=== PATIENT | female | born 1945 | race Caucasian/White ===

== ENCOUNTER 2017-12-31 15:05 | Emergency (ER) | payer OTHER ==
[~2017-12-31] VITALS: Ht 162.6 cm; Wt 74.8 kg
[2017-12-31] MEDS ORDERED: NEURONTIN600 MG (15:24)
[2017-12-31] MEDS ORDERED: TROMBONEX CAPS1 EACH (15:24)
[2017-12-31] MEDS ORDERED: VASOTEC5 MG (15:24)
[2017-12-31] MEDS ORDERED: ASA325 MG (15:25)
[2017-12-31] MEDS ORDERED: TOPROL XL50 M1 (15:25)
[2017-12-31] MEDS ORDERED: LEXAPRO5 MG (15:25)
[2017-12-31] MEDS ORDERED: RESTORIL7.5 MG (15:26)
[2018-01-01] MEDS ORDERED: IPRATROPIU0.2 MG/1 M IH (14:51)
[2018-01-01] MEDS ORDERED: XOPENEX0.63 MG/3 IH (14:51)
[2018-01-01] MEDS ORDERED: PULMICORT1 MG/2 ML IH (14:51)
[2018-01-01] MEDS ORDERED: ZYNCOF 20-400120 ML PO (14:54)
[2018-01-01] MEDS ORDERED: TESSALON PERLE100 M1 PO (14:54)
[2018-01-01] MEDS ORDERED: TUSSIONEX PENN115 ML PO (14:54)
== END 2018-01-02 10:24 | disposition home or self-care (01) ==
LOC: ER 15:05
DX: J44.1 Chronic obstructive pulmonary disease with (acute) exacerbation (principal); J45.998 Other asthma; R05 Cough; J11.1 Influenza due to unidentified influenza virus with other respiratory manifestations

== ENCOUNTER 2019-02-24 09:42 | Emergency (ER) | payer OTHER ==
[~2019-02-24] VITALS: Ht 162.6 cm; Wt 77.6 kg
[~2019-02-24 09:42] MED LIST: ASA325 MG; IPRATROPIU0.2 MG/1 M IH; LEXAPRO5 MG; NEURONTIN600 MG; PULMICORT1 MG/2 ML IH; RESTORIL7.5 MG; TESSALON PERLE100 M1 PO; TOPROL XL50 M1; TROMBONEX CAPS1 EACH; TUSSIONEX PENN115 ML PO; VASOTEC5 MG; XOPENEX0.63 MG/3 IH; ZYNCOF 20-400120 ML PO
[2019-02-24] MEDS ORDERED: TAMBOCOR150 MG (10:08)
[2019-02-24] MEDS ORDERED: ELIQUIS2.5 MG (10:08)
[2019-02-24] MEDS ORDERED: DELSYM30 MG/5 M1 PO (13:42)
== END 2019-02-24 13:46 | disposition home or self-care (01) ==
LOC: ER 09:42
DX: B34.9 Viral infection, unspecified (principal)

== ENCOUNTER 2021-08-29 20:42 | Emergency (ER) | payer OTHER ==
[~2021-08-29] VITALS: Ht 157.5 cm; Wt 76.2 kg
[~2021-08-29 20:42] MED LIST changes: +DELSYM30 MG/5 M1 PO; +ELIQUIS2.5 MG; +TAMBOCOR150 MG
[2021-08-29] MEDS ORDERED: SYNTHROID50 MCG PO (20:54)
[2021-08-29] MEDS ORDERED: AMLODIPINE-OLM1 EAC2 PO (20:56)
== END 2021-08-29 22:51 | disposition home or self-care (01) ==
LOC: ER 20:42
DX: R10.9 Unspecified abdominal pain (principal); Z88.1 Allergy status to other antibiotic agents

== ENCOUNTER 2021-09-17 06:00 | Inpatient (IN) | payer OTHER ==
[~2021-09-17] VITALS: Ht 157.5 cm; Wt 74.4 kg
[~2021-09-17 06:00] MED LIST changes: +AMLODIPINE-OLM1 EAC2 PO; +SYNTHROID50 MCG PO
[2021-09-18] MEDS ORDERED: ULTRAM50 MG PO (09:09)
== END 2021-09-18 11:04 | disposition home or self-care (01) | DRG 419 ==
LOC: CIR.AMB 06:00 → SURH 15:12 → CIR.AMB 15:30 → SURH 09-18 11:04
PROVIDERS: ADMIT Surgery; ATTEND Surgery
PROC: BF03YZZ Plain Radiography of Gallbladder and Bile Ducts using Other Contrast (ICD-10-PCS; 2021-09-17)
PROC: 0FT44ZZ Resection of Gallbladder, Percutaneous Endoscopic Approach (ICD-10-PCS; principal; 2021-09-17 15:30)
DX: K80.00 Calculus of gallbladder with acute cholecystitis without obstruction (principal); Z20.822 Contact with and (suspected) exposure to COVID-19

== ENCOUNTER 2024-04-02 06:00 | Day surgery (SDC) | payer OTHER ==
[2024-03-29 08:44] VITALS: BP 117/73
[2024-03-29 08:49] LABS: HEMATOCRIT 34.9 % (36.0-45.00); HEMOGLOBIN 11.7 g/dL (12.0-15.00); MEAN CELL VOLUME 94.7 fL (80.00-100.00); MEAN CORPUSCULAR HEMOGLOBIN 31.9 pg (27.00-32.0); MEAN CORPUSCULAR HGB CONC 33.6 g/dl (32.0-36.0); PLATELET COUNT 356 K/uL (150-450); RED BLOOD COUNT 3.68 M/uL (4.00-6.00); RED CELL DISTRIBUTION WIDTH 13.2 % (11.5-14.5)
[2024-03-29 09:03] LABS: PH,URINE 5.5 (5.0-8.0); URINE APPEARANCE Cloudy; URINE BILIRRUBIN Negative (NEGATIVE); URINE BLOOD Large; URINE COLOR Dark Yellow; URINE GLUCOSE Negative (NEGATIVE); URINE KETONE Trace (NEGATIVE); URINE LEUKOCYTE Moderate; URINE NITRATE Negative; URINE PROTEIN 30 (NEGATIVE)
[2024-03-29 09:07] LABS: URINE EPITHELIAL CELLS 31.8 uL (0.0-38.8); URINE RBC 206.2 uL (0.0-20.8); URINE WBC 32.5 uL (0.0-23.2)
[2024-03-29 09:19] LABS: URINE CRYSTALS FEW /HPF; URINE MUCUS MODERATE
[2024-03-29 09:56] LABS: INR 1.01; PARTIAL THROMBOPLASTIN TIME 26.3 SECONDS (22.0-34.0)
[2024-03-29 10:19] LABS: ALBUMIN 3.2 gm/dL (3.4-5.0); BILIRUBIN TOTAL 1.7 mg/dL (0.3-1.2); CALCIUM 9.5 mg/dL (8.5-10.1); CREATININE SERUM 0.73 mg/dL (0.55-1.02); GFR 77.3; GLOBULINA 3.5 G/DL (2.4-3.5); POTASSIUM 4.65 mEq/L (3.5-5.1); TOTAL PROTEIN 6.7 gm/dL (6.4-8.2)
[~2024-04-02] VITALS: Ht 162.6 cm; Wt 76.2 kg
[~2024-04-02 06:00] MED LIST changes: +AZOR 5-20 MG T1 EACH; +CRESTOR; +ELIQUIS5 MG; +FLECAINIDE ACE100 MG; +LEXAPRO 10 MG; +TOPROL XL25 M1; +ULTRAM50 MG PO
[2024-04-02] MEDS ORDERED: CEFAZOLIN SODIUM 1,000 MG VIAL ONE (08:56)
[2024-04-02] MEDS ORDERED: ISOPROPYL ALCOHOL 30 ML OUNCE TOP ONE (11:30)
[2024-04-02] MEDS ORDERED: MORPHINE SULFATE 2 MG/ML CARTRIDGE IV ONE (13:05)
[2024-04-02] MEDS ORDERED: MORPHINE SULFATE 4 MG/ML VIAL IV ONE ×2 (13:35→14:05)
== END 2024-04-02 15:50 | disposition home or self-care (01) ==
LOC: CIR.AMB 06:00
PROVIDERS: ATTEND Orthopaedic Surgery Hand Surgery
DX: S52.532A Colles' fracture of left radius, initial encounter for closed fracture (principal); S62.337A Displaced fracture of neck of fifth metacarpal bone, left hand, initial encounter for closed fracture; M24.532 Contracture, left wrist
CPT/HCPCS: 25609; 26615; 25280; L8699